=== PATIENT | female | born 2005 | race Caucasian/White ===

== ENCOUNTER 2024-12-07 15:47 | Outpatient (REF) | payer BC, SELFPAY ==
[2024-12-07 18:09] LABS: Thyroid Stimulating Hormone < 0.01 uIU/mL (0.32-4.0)
--- OUTSIDE RECORDS SUMMARY | 2024-12-07 18:47 | XMS_ITS | Data Portability ---
Author Organization [facility] [employer] Address [address] [address] Care Team Providers Care Brand Designer Name Role Phone JAMIE ROSARIO Referring Provider JAMIE Suggs Primary Care Provider [phone] Assessment Encounter Date Assessment Date Assessment LastModified by Organization Details LastModified Time 01/25/2021 01/25/2021 IMPRESSION: Postconcussive onset January 2020 of positioning independent episodes of dizziness with passing out; postconcussive increase in frequency of long history of tics. The details of an episode of dizziness and passing out are not typical for seizure. The positioning independent nature raises concern for seizure, however. Diagnostic investigation is therefore warranted. We discussed this. They agree to the diagnostic investigations. She does not have claustrophobia. I see tics only at the very end of our encounter, to quick head shakes. Tourette? s syndrome is not excluded although it is unusual from my understanding that takes emerge and persist throughout childhood with the mother not noticing. I defer to psychiatry for further understanding of this symptom. PLAN Angelica Newton January 25, 2021 [facility] facility: Brain MRI with and without contrast epilepsy protocol for positioning independent episodes of dizziness and passing out [facility] outpatient facility: EEG wake and sleep for positioning independent episodes of dizziness and passing out Follow-up afterwards rossana Not available 01/25/2021 10:22:08 11/27/2023 11/27/2023 IMPRESSION: Postconcussive onset January 2020 of positioning independent episodes of dizziness with passing out; postconcussive increase in frequency of long history of tics. DATA REVIEW IMAGING Brain MRI with and without contrast February 10, 2021 per dictation [facility] Dr. Andrea Jang: Unremarkable MRI examination of brain. NEUROPHYSIOLOGY EEG January 31, 2021, per my review: This is a borderline waking and sleep EEG because of a single small sharp amplitude right parietal? f rontal sharp wave and several episodes of right posterior slowing, all findings occurring during head rocking. These findings may be artifact relating to head rocking. Right posterior brain dysfunction cannot be excluded. Clinical and neuro imaging correlation may provide elucidation. EEG abnormality could be artifactual and in any case is nonspecific, not strongly suggesting a seizure disorder. Details of the position independent episodes that are associated with passing out remains in atypical for seizure although the position independence is a consistent characteristic with seizure. I newly appreciate that she has position dependent dizziness episodes, without passing out, but not orthostatic and not related to a heart condition, given patient's report of normal tilt table testing and normal 48-hour Holter monitor which recorded such episodes. A vestibular migraine could be a unifying diagnosis. We discussed this. I suggest a migraine medication that does not treat seizures and they are also in agreement with this. We compare amitriptyline and propranolol side effects and she chooses amitriptyline as a first trial intervention. >>>>>January 25, 2021 I see tics only at the very end of our encounter, to quick head shakes. Tourette? s syndrome is not excluded although it is unusual from my understanding that takes emerge and persist throughout childhood with the mother not noticing. I defer to psychiatry for further understanding of this symptom. PLAN Angelica Newton November 27, 2023 To help with the dizziness associated with migraine: Amitriptyline 10 mg tablets, taking dose 2 hours before bedtime: 0.5 tablet nightly, one week 1.0 tablet nightly one week 2 tablets nightly one week 3 tablets nightly afterwards as tolerated Amitriptyline may cause drowsiness, bladder hesitation, and dry mouth, and increased appetite. If side effects are not mild, return to the previous dose where he did not have side effects. If mild side effects do not go away after a few days, wait at the current dose for resolution if side effects are very mild and not bothering you, or return to the previous dose at which you did not have side effects. (If you have dry mouth: Try sugarless candy for dry mouth. Alternatively, Biotene, once every morning, [id number]-lpf-[id number] liquid may also help dry mouth) If symptoms resolve at a particular dose, there is no need to increase the dose further. If tiredness is the main side effect and you cannot get rid of it, consider stopping the gabapentin that you started a month ago which you report is just for help sleeping? n ot for help with your mood. If symptoms do not resolve but there are no side effects, do not stop the medication. We may discuss increasing the medication and follow-up. 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 --- EEG January 31, 2021, per my review:single small sharp wave and several episodes of right posterior slowing, all of which may be artifact relating to head rocking. ---Brain MRI February 10, 2021 : Unremarkable >>>>>>>>>>>>January 27, 2024 She would like to stay at this dose longer to understand how well it is working. She will make sure you call me? a nd psychiatry? s rio she have any manic symptomatology and we will not increase this dose in the future because of that possibility. Should she wish optimization, returning to the propranolol 10 mg tablet -- which she takes as needed for public speaking? m aking it a daily medication and slowly increasing it as needed would be my next intervention. She agrees with this and Contingency plan. >>>>>>>>>>>>November 27, 2023 EEG abnormality could be artifactual and in any case is nonspecific, not strongly suggesting a seizure disorder. Details of the position independent episodes that are associated with passing out remains in atypical for seizure although the position independence is a consistent characteristic with seizure. I newly appreciate that she has position dependent dizziness episodes, without passing out, but not orthostatic and not related to a heart condition, given patient's report of normal tilt table testing and normal 48-hour Holter monitor which recorded such episodes. A vestibular migraine could be a unifying diagnosis. We discussed this. I suggest a migraine medication that does not treat seizures and they are also in agreement with this. We compare amitriptyline and propranolol side effects and she chooses amitriptyline as a first trial intervention. >>>>>January 25, 2021 I see tics only at the very end of our encounter, to quick head shakes. Tourette? s syndrome is not excluded although it is unusual from my understanding that takes emerge and persist throughout childhood with the mother not noticing. I defer to psychiatry for further understanding of this symptom. PLAN Angelica Aman January 27, 2024 To help with the dizziness associated with migraine: CONTINUE Amitriptyline 10 mg tablets, taking dose 2 hours before bedtime: 3 tablets nightly Do not take this medication if you are thinking of becoming . Follow-up 4 months rossana Not available 01/27/2024 12:59:16 Plan of Treatment Reminders Order Date Submit Date Provider Last Modified By Organization Details Last Modified Time Details Appointments None recorded. Lab None recorded. Referral None recorded. Procedures None recorded. Surgeries None recorded. Imaging MRI, head, w/wo contrast - Brain MRI with and without contrast Epilepsy Protocol, Context: positioning independent episodes of dizziness and passing out 2020 021 danay 1 [facility] [address] [place], [address], 15:13:42 electroence phalogram - EEG wake and sleep for positioning independent episodes of dizziness and passing out 2020 021 [facility] ([facility]), [address] [place], [address], 1 13:53:28 Medication Orders amitriptyli ne 10 mg tablet 2023 024 [facility] #[id number], [address], [place], [address], 4 12:38:32 amitriptyli ne 10 mg tablet 2023 024 mrossen [id number], [address], [place], [address], 18:25:06 Patient TargetsNo targets recorded. Patient Instructions Encounter Date Encounter Id Patient Instructions Last Modified By Organization Details Last Modified Time 11/27/2023 [id number] Discussion acros s issues of diagnoses and management and same day associated chart review and management greater than 50% greater than 40 minutes [email or web address] Not available 11/27/2023 10:02:03 01/27/2024 [id number] Chronic conditio n with exacerbation; prescription medication management mrossen Not available 01/27/2024 12:58:57 Reason for Referral None Reported. Results Created Date Observation Date Name Description Value Unit Range Abnormal Flag Note LastModifiedBy Organization Detail LastModifiedTime 02/01/20 21 01/31/2021 elect roenc ephal ogram No observ ation record ed. [email or web address] ([facility]) [address] [place], [address], 02/14/2021 09:45:15 02/03/20 21 elect roenc ephal ogram No observ ation record ed. [facility] ([facility]) [address] [place], [address], 02/05/2021 11:15:10 02/03/20 21 02/02/2021 elect roenc ephal ogram No observ ation record ed. [email or web address] Not Available 02/14 09:45:16 02/15/20 21 02/10/2021 MRI, brain , w/wo contr ast No observ ation record ed. [email or web address] [facility] ([facility]) [address] [place], [address], 02/14/2021 13:22:49 Result Notes None recorded. Procedures Surgical History Date Name Laterality Status Provider Name and Address Organization Details Recorded Time 01/27/2024 DATA REVIEW completed Jason Leigh MD [address] [place] [address] [place], [address], [facility] 01/27/2024 12:53:06 11/27/2023 DATA REVIEW completed Jason Leigh MD [address] [place] [address] [place], [address], [facility] 11/27/2023 09:57:17 Imaging Results Imaging Date Name Status LastModified by Organization Details LastModified Time 01/31/2021 electroencephalogram completed [address] ([facility]) [address] [place], [address], 02/14/2021 09:45:15 02/02/2021 electroencephalogram completed [facility] ([facility]) [address] [place], [address], 02/05/2021 11:15:10 02/02/2021 electroencephalogram [place] [id number] Info rmation not available 02/14/2021 09:45:16 02/10/2021 MRI, brain, w/wo contrast completed [address] [facility] ([facility]) [address] [place], [address], 02/14/2021 13:22:49 Procedure Notes None recorded. Medical Equipment None Reported. Allergies No known drug allergies Medications Name Sig Start Date Stop Date Status Note LastModified by Organization Details LastModified Time fluoxetine 40 mg capsule TAKE 1 CAPSULE BY MOUTH AT BEDTIME active Not Available Not Available No t Available fluoxetine 20 mg/5 mL (4 mg/mL) oral solution TAKE 2 TEASPOONSFU L (10 ML) BY MOUTH EVERY DAY active Not Available Not Available No t Available lithium carbonate 150 mg capsule TAKE 1 CAPSULE BY MOUTH EVERY DAY active Not Available Not Available No t Available lithium carbonate ER 450 mg tablet,exten ded release TAKE 1 TABLET EVERY DAY AT BEDTIME (WITH LITHIUM CARBONATE 300 MG CAP) active Not Available Not Available Not Available oxycodone-ac etaminophen 5 mg-325 mg tablet TAKE 1 TAB EVERY 4-6 HOURS NEEDED FOR PAIN. MAY CAUSE DROWSINESS active Not Available Not Available N ot Available propranolol 10 mg tablet TAKE 1 TABLET BY MOUTH EVERY DAY NEEDED DIRECTED active Not Available Not Available No t Available amoxicillin 875 mg tablet TAKE 1 TAB TWICE A DAY UNTIL FINISHED. USE WITH PROBIOTICS active Not Available Not Available N ot Available amitriptylin e 10 mg tablet TAKE 3 TABLETS EVERY DAY BY ORAL ROUTE IN THE EVENING FOR 90 DAYS, FOR MIGRAINE AURA. active Not Available Not Available No t Available lithium carbonate 300 mg capsule TAKE 1 CAPSULE BY MOUTH AT BEDTIME active Not Available Not Available No t Available benzonatate 100 mg capsule TAKE 2 CAPSULES BY MOUTH 3 TIMES A DAY NEEDED FOR COUGH. active Not Available Not Available N ot Available levothyroxin e 50 mcg tablet TAKE 1 TABLET BY MOUTH EVERY MORNING active Not Available Not Available No t Available cephalexin 500 mg capsule TAKE 1 CAPSULE BY MOUTH 3 TIMES A DAY FOR 7 DAYS active Not Available Not Available N ot Available gabapentin 100 mg capsule TAKE 1 TO 2 CAPSULES BY MOUTH EVERY DAY AT BEDTIME DIRECTED NEEDED active Not Available Not Available No t Available methylpredni solone 4 mg tablets in a dose pack TAKE 6 TABLETS ON DAY 1 DIRECTED ON PACKAGE AND DECREASE BY 1 TAB EACH DAY FOR A TOTAL OF 6 DAYS active Not Available Not Available No t Available albuterol sulfate HFA 90 mcg/actuatio n aerosol inhaler INHALE 2 PUFFS INTO THE LUNGS EVERY 4 (FOUR) HOURS NEEDED FOR WHEEZING. USE WITH SPACER active Not Available Not Available No t Available Prozac 10 mg capsule Take 1 capsule every day by oral route. active Not Available Not Available No t Available PreviDent 5000 Plus 1.1 % cream PLEASE SEE ATTACHED FOR DETAILED DIRECTIONS active Not Available Not Available N ot Available fluticasone propionate 50 mcg/actuatio n nasal spray,suspen oscar SPRAY 2 SPRAYS INTO EACH NOSTRIL EVERY DAY FOR 30 DAYS active Not Available Not Available Not Available lamotrigine 100 mg tablet TAKE 1 TABLET BY MOUTH DAILY FOR 2 WEEKS THEN INCREASE TO 2 DAILY active Not Available Not Available No t Available amoxicillin 875 mg-potassium clavulanate 125 mg tablet TAKE 1 TABLET BY MOUTH TWICE A DAY FOR 7 DAYS active Not Available Not Available No t Available cyclobenzapr ine 5 mg tablet TAKE 1 TABLET P EVERY DAY AT BEDTIME NEEDED SPASM active Not Available Not Available No t Available Vitals Date Recorded Body height Body mass index (BMI) Body mass index (BMI) Percentile per age and sex Body weight Respiratory rate Provider Name and Address Organization Details Last Updated DateTime 1 170.18 cm 26.5 kg/m2 88 % 47418.1 1 g 12 /min Lety Hood [facility] 09:16:50 Social History Question Answer Notes LastModified by Organizat ion Details LastModified Time Tobacco Smoking Status Never Smoker Lety Chandra [facility] 01/25/2021 09:18:28 What Is Your Level Of Alcohol Consumption? None [facility] Information not available 01/25/2021 What Is Your Level Of Caffeine Consumption? Moderate 3 Cups Per Day [facility] Information not available 01/25/2021 What Is The Highest Grade Or Level Of School You Have Completed Or The Highest Degree You Have Received? [id number] [facility] Information not available 01/25/2021 What Is Your Relationship Status? Single [facility] Information not available 01/25/2021 Sex: Unknown Functional Status None recorded. Mental Status None recorded. Family History Relationship Description Onset Age of this Age Resolved Age Notes LastModified by Organization Details LastModified Time Mother Type 2 diabetes mellitus [email or web address] Not available 09:17:52 Medical History Condition Response Headaches Y Bipolar Disorder Y Gynecological HistoryNo gynecological history recorded. Obstetrics History GPAL:G 0 P 0 0 0 0 Past Encounters Encounter ID Performer Location Encounter Start Date Encounter Closed Date Diagnosis/Indication Diagnosis SNOMED-CT Code Diagnosis ICD10 Code Diagnosis Note [id number] Jason Leigh MD [facility] [address] [place] [address] [place] [address] 01/25/2021 09:04:30 01/25/2021 15:13:42 Focal onset impaired awareness epileptic seizure 575639809 G40.209 [id number] Jason Leigh MD [facility] [address] [place] [address] [place] [address] 11/27/2023 09:03:15 11/27/2023 10:07:03 Focal onset impaired awareness epileptic seizure 190870099 G40.209 Migraine with aura 58685 06 G43.109 [id number] Jason Leigh MD [facility] [address] [place] [address] [place] [address] 01/27/2024 11:53:59 01/27/2024 16:57:04 Migraine with aura 3166439 G43.109 Focal onse t impaired awareness epileptic seizure 959072766 G40.209 Health Concerns Section Related Observation LastModified by Organization Detai ls LastModified Time None Recorded Concern Status LastModified by Organization Details LastModified Time None Recorded Advance Directives Directive None Recorded Payers Encounter Date Sequence Insurance Name Policy Number Policy Orellana Covered Member ID Orellana Member ID Guarantor Name 01/25/2021 1 [facility] [id number] Angelica Newton [id number] Angelica Newton 11/27/2023 1 [place] [id number] Davion Newton [id number] Angelica Newton 01/27/2024 1 [place] [id number] Davion Newton [id number] Angelica Newton Notes Date Note Type Note Provider Name and Address Organization Details Recorded Time 01/25/2021 text/html They (identify w ith they/them pronouns and) present for initial neurology neurology consultation for assessment and management of episodic dizziness and passing out as well as taking. They are accompanied by a friend? a nd mother Macrina dickens will help with history and provide support. Historically she has never passed out. She has ? u sually? been dizzy for as long as she can remember, a dizziness that feels like just after one has spun around such as a inxml-dd-ayyby. This is present ~70% of the time, positioning independent. In January 2020 she had a concussion falling off a swing, uncertain loss of consciousness. There were postconcussive symptoms including headache. Many of the postconcussive symptoms resolved but there has been postconcussive persistence of episodes of dizziness followed by passing out. The dizziness feels different than her baseline dizziness, more like a feeling if she gets up too fast, with the body very heavy. Passing out occurs after a second or 2 up to a minute or 2 of this dizziness. An event occurs with equal likelihood if she is standing or sitting. An event occurs more rarely if she is lying down. The period of unconsciousness may be a split second but averages 1 or 2 minutes. There have been rare longer events including 45-60 minutes after which she went to the emergency room. Per chart, investigation at emergency room October 24, 2020 was unrevealing. When she regains unawareness there is an additional minute when she is unable to move. She struggles to try to move which looks like ? t ics or twitches but purposeful? to their friend and feels purposeful to the patient. Her eyes are closed during the period of unconsciousness but open during this post-unconsciousness time. There is no bladder or bowel dyscontrol. She has hurt herself falling down but there has been no fracture. Events were not that frequent for the first ~3 months but became more frequent May or June 2021. Since then they have been 1-4 per day with a rare day without any events. The exception has been this past week when there have been ~4 events throughout the whole week. She notes that this is her first week after the end of her semester at [employer]. They have had tics ? h er whole life.? Their mother ? n ever noticed them, I just guess I wasn? t tuned in.? Historically they have been only occasional, perhaps less than once a day. Their okay full pill neurological exam being normal is a friend notices them as a shiver down the spine or a short whistle or word. The patient agrees. They have increased in frequency since January 2020 concussion. They occur daily at varying frequencies. Sometimes there are clusters of very frequent events for 15 minutes to 60 minutes. Other times there are isolated events throughout the day. She started Prozac with diagnoses of anxiety and depression about 2 years ago. She subsequently received diagnosis of bipolar disorder. 2 mood stabilizers were tried in succession in early/mid 2019 but she had side effects. They then went into an intensive care program toward the end of January 2020 where they tried another mood stabilizer which ? d idn? t work out.? They tried yet another mood stabilizer in early March and this again did not work out. They do not remember names of medications but mother remembers Lamictal and Latuda. They have since remained on Prozac 10 mg with no subsequent medication changes. Jason Leigh MD [address] [place] [address] [place], [address], [facility] 02/02/2021 08:59:17 11/27/2023 text/html They (identify w ith they/them pronouns and) present for neurology reconsultation for assessment and management of episodic dizziness and passing out. --They are unaccompanied. --not present:a friend? a nd mother Macrina.>>>>>>>>>>>>Lupis [facility] 2023Since January 25, 2021 first and only neurology encounter, 2 years 10 months ago, her episodic position independent dizziness episodes have continued although they are less frequent, and less frequently associated with losing consciousness. They occur about once a day. Dizziness continues range between 1-2 seconds and 1-2 minutes. She loses consciousness about 10% of the time. Even if she loses consciousness within 2 seconds, she has not hurt herself because she has learned to get herself into a safe position when she feels the sensation.She mentions another type of dizziness that she has that we had not discussed because she always thought it was normal: The same type of dizziness as the above events, but position dependent. These happen one or more times a day with standing from a sitting position. Portion of the events are associated with her vision going partially dark and light seeming red. She has had 48-hour Holter monitor during which events occurred and that was normal. She has had tilt table testing which was normal.She also gets headaches. Sometimes she has visual splotches of dark spots during her headaches. >>>>>>>>>>>>January 25, 2021 presenting symptomatology:Histor ically she has never passed out. She has ? u sually? been dizzy for as long as she can remember, a dizziness that feels like just after one has spun around such as a qpart-gy-leihk. This is present ~70% of the time, positioning independent. In January 2020 she had a concussion falling off a swing, uncertain loss of consciousness. There were postconcussive symptoms including headache. Many of the postconcussive symptoms resolved but there has been postconcussive persistence of episodes of dizziness followed by passing out. The dizziness feels different than her baseline dizziness, more like a feeling if she gets up too fast, with the body very heavy. Passing out occurs after a second or 2 up to a minute or 2 of this dizziness. An event occurs with equal likelihood if she is standing or sitting. An event occurs more rarely if she is lying down. The period of unconsciousness may be a split second but averages 1 or 2 minutes. There have been rare longer events including 45-60 minutes after which she went to the emergency room. Per chart, investigation at emergency room October 24, 2020 was unrevealing. When she regains unawareness there is an additional minute when she is unable to move. She struggles to try to move which looks like ? t ics or twitches but purposeful? to their friend and feels purposeful to the patient. Her eyes are closed during the period of unconsciousness but open during this post-unconsciousness time. There is no bladder or bowel dyscontrol. She has hurt herself falling down but there has been no fracture. Events were not that frequent for the first ~3 months but became more frequent May or June 2021. Since then they have been 1-4 per day with a rare day without any events. The exception has been this past week when there have been ~4 events throughout the whole week. She notes that this is her first week after the end of her semester at [employer]. They have had tics ? h er whole life.? Their mother ? n ever noticed them, I just guess I wasn? t tuned in.? Historically they have been only occasional, perhaps less than once a day. Their okay full pill neurological exam being normal is a friend notices them as a shiver down the spine or a short whistle or word. The patient agrees. They have increased in frequency since January 2020 concussion. They occur daily at varying frequencies. Sometimes there are clusters of very frequent events for 15 minutes to 60 minutes. Other times there are isolated events throughout the day. She started Prozac with diagnoses of anxiety and depression about 2 years ago. She subsequently received diagnosis of bipolar disorder. 2 mood stabilizers were tried in succession in early/mid 2019 but she had side effects. They then went into an intensive care program toward the end of January 2020 where they tried another mood stabilizer which ? d idn? t work out.? They tried yet another mood stabilizer in early March and this again did not work out. They do not remember names of medications but mother remembers Lamictal and Latuda. They have since remained on Prozac 10 mg with no subsequent medication changes. Jason Leigh MD [address] [place] [address] [place], [phone], [facility] 11/27/2023 10:02:15 01/27/2024 text/html They (identify w ith they/them pronouns and) present for neurology reconsultation for assessment and management of episodic dizziness and passing out. --They are unaccompanied. --not present:a friend? a nd mother Macrina. >>>>>>>>>>>>January 27, 2024Since November 27, 2023 Neurology follow-up encounter, she has started amitriptyline 10 mg tablets and has increased by 10 mg every week until reaching 30 mg every evening. She has had reduction of episodic position independent dizziness episodes. She had one just yesterday and that reminded her that she had not had one previously for 2 to 4 weeks. This one was about 30 seconds long. She did not lose consciousness but almost. She has not lost consciousness in any of the episodes that have occurred since reaching her current dose, ~6 weeks ago. She has had no side effects. 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 She has used it a few times to good effect in reducing her anxiety while speaking. She has had no side effects. >>>>>>>>>>>>November 27, 2023Since January 25, 2021 first and only neurology encounter, 2 years 10 months ago, her episodic position independent dizziness episodes have continued although they are less frequent, and less frequently associated with losing consciousness. They occur about once a day. Dizziness continues range between 1-2 seconds and 1-2 minutes. She loses consciousness about 10% of the time. Even if she loses consciousness within 2 seconds, she has not hurt herself because she has learned to get herself into a safe position when she feels the sensation.She mentions another type of dizziness that she has that we had not discussed because she always thought it was normal: The same type of dizziness as the above events, but position dependent. These happen one or more times a day with standing from a sitting position. Portion of the events are associated with her vision going partially dark and light seeming red. She has had 48-hour Holter monitor during which events occurred and that was normal. She has had tilt table testing which was normal.She also gets headaches. Sometimes she has visual splotches of dark spots during her headaches. >>>>>>>>>>>>January 25, 2021 presenting symptomatology:[facility] she has never passed out. She has ? u sually? been dizzy for as long as she can remember, a dizziness that feels like just after one has spun around such as a [id number]. This is present ~70% of the time, positioning independent. In January 2020 she had a concussion falling off a swing, uncertain loss of consciousness. There were postconcussive symptoms including headache. Many of the postconcussive symptoms resolved but there has been postconcussive persistence of episodes of dizziness followed by passing out. The dizziness feels different than her baseline dizziness, more like a feeling if she gets up too fast, with the body very heavy. Passing out occurs after a second or 2 up to a minute or 2 of this dizziness. An event occurs with equal likelihood if she is standing or sitting. An event occurs more rarely if she is lying down. The period of unconsciousness may be a split second but averages 1 or 2 minutes. There have been rare longer events including 45-60 minutes after which she went to the emergency room. Per chart, investigation at emergency room October 24, 2020 was unrevealing. When she regains unawareness there is an additional minute when she is unable to move. She struggles to try to move which looks like ? t ics or twitches but purposeful? to their friend and feels purposeful to the patient. Her eyes are closed during the period of unconsciousness but open during this post-unconsciousness time. There is no bladder or bowel dyscontrol. She has hurt herself falling down but there has been no fracture. Events were not that frequent for the first ~3 months but became more frequent May or June 2021. Since then they have been 1-4 per day with a rare day without any events. The exception has been this past week when there have been ~4 events throughout the whole week. She notes that this is her first week after the end of her semester at [employer]. They have had tics ? h er whole life.? Their mother ? n ever noticed them, I just guess I wasn? t tuned in.? Historically they have been only occasional, perhaps less than once a day. Their okay full pill neurological exam being normal is a friend notices them as a shiver down the spine or a short whistle or word. The patient agrees. They have increased in frequency since January 2020 concussion. They occur daily at varying frequencies. Sometimes there are clusters of very frequent events for 15 minutes to 60 minutes. Other times there are isolated events throughout the day. She started Prozac with diagnoses of anxiety and depression about 2 years ago. She subsequently received diagnosis of bipolar disorder. 2 mood stabilizers were tried in succession in early/mid 2019 but she had side effects. They then went into an intensive care program toward the end of January 2020 where they tried another mood stabilizer which ? d idn? t work out.? They tried yet another mood stabilizer in early March and this again did not work out. They do not remember names of medications but mother remembers Lamictal and Latuda. They have since remained on Prozac 10 mg with no subsequent medication changes. Jason Leigh MD [address] [place] [address] [place], [phone], [facility] 01/27/2024 12:59:30 OBGyn Episode No OBEpisode recorded.
== END 2024-12-07 15:48 | disposition home or self-care (01) ==
LOC: HO.LAB 15:47
PROVIDERS: PCP Family Medicine; Visit Provider Psychiatry & Neurology Psychiatry
DX: F31.89 Other bipolar disorder (principal)
CPT/HCPCS: 36415; 84443

== ENCOUNTER 2025-03-15 15:13 | Outpatient (REF) | payer BC, SELFPAY ==
--- OUTSIDE RECORDS SUMMARY | 2025-03-15 16:25 | XMS_ITS | Data Portability ---
Author Organization [facility], [employer] Address [address] [place] [address] Care Team Providers Care Estimate Clerk Name Role Phone JAMIE ROSARIO Referring Provider Shawnaa JAMIE Jim Primary Care Provider Assessment Encounter Date Assessment Date Assessment LastModified [...] of our encounter, to quick head shakes. Tourette s syndrome is not excluded although it is unusual from my understanding that takes emerge and persist throughout childhood with the mother not noticing. I defer to psychiatry for further understanding of this symptom. PLAN Angelica Newton January 25, 2021 [facility] facility: Brain MRI with and without contrast epilepsy protocol for positioning independent episodes of dizziness and passing out [facility] outpatient facility: EEG wake and sleep for positioning independent episodes of dizziness and passing out Follow-up afterwards rossana Not available 01/25/2021 10:22:08 11/27/2023 11/27/2023 IMPRESSION: Postconcussive onset January 2020 of positioning independent episodes of dizziness with passing out; postconcussive increase in frequency of long history of tics. DATA REVIEW IMAGING Brain MRI with and without contrast February 10, 2021 per dictation [facility] neur[facility] Dr. Andrea Jang: Unremarkable MRI examination of brain. NEUROPHYSIOLOGY EEG January 31, 2021, per my review: This is a borderline waking and sleep EEG because of a single small sharp amplitude right parietal frontal sharp wave and several episodes of right [...] of our encounter, to quick head shakes. Tourette s syndrome is not excluded although it [...] dry mouth. Alternatively, Biotene, once every morning, haok-yvi-rvxsurm liquid may also help dry mouth) If symptoms resolve at a particular dose, there is no need to increase the dose further. If tiredness is the main side effect and you cannot get rid of it, consider stopping the gabapentin that you started a month ago which you report is just for help sleeping not for help with your mood. If symptoms [...] working. She will make sure you call me and psychiatry should she have any manic symptomatology and we will not increase this dose in the future because of that possibility. Should she wish optimization, returning to the propranolol 10 mg tablet -- which she takes as needed for public speaking making it a daily medication and slowly increasing [...] of our encounter, to quick head shakes. Tourette s syndrome is not excluded although it is unusual from my understanding that takes emerge and persist throughout childhood with the mother not noticing. I defer to psychiatry for further understanding of this symptom. PLAN Angelica Newton January 27, 2024 To help with the [...] Organization Details Last Modified Time Details Appointments FOLLOW UP EXT 2024 12:30P José Leigh MD PhD Not available Not available Not available Lab None recorded. Referral None recorded. Procedures None recorded. Surgeries None recorded. Imaging MRI, head, w/wo contrast - Brain MRI with and without contrast Epilepsy Protocol, Context: positioni ng independe nt episodes of dizziness and passing out 2020 021 [email or web address] [facility] ([facility]), [address] [place], [address], 01/25/2021 15:13:42 electroen cephalogr am - EEG wake and sleep for positioni ng independe nt episodes of dizziness and passing out 2020 021 [facility] (P[facility] Neuro Lab), [address] [place], [address], 01/31/2021 13:53:28 Medication Orders amitripty line 10 mg tablet 2023 024 [facility]acy #[id number], [address] [place], [address], 01/27/2024 12:38:32 amitripty line 10 mg tablet 2023 024 [facility]/Pharmacy #[id number], [address] [place], [address], 12/25/2023 18:25:06 Patient TargetsNo targets recorded. Patient Instructions Encounter Date Encounter Id Patient Instructions Last Modified By Organization Details Last Modified Time 11/27/2023 [id number] Discussion acros s issues of diagnoses and management and same day associated chart review and management greater than 50% greater than 40 minutes [email or web address] Not available 11/27/2023 10:02:03 01/27/2024 [id number] Chronic conditio n with exacerbation; prescription medication management [email or web address] Not available 01/27/2024 12:58:57 Reason for Referral None Reported. Results Created Date Observation Date Name Description Value Unit Range Abnormal Flag Note LastModifiedBy Organization Detail LastModifiedTime 02/01/20 21 01/31/2021 elect roenc ephal ogram No observ ation record ed. [email or web address] [facility] (Central Scheduling Radiology) [address] [place], [address], 02/14/2021 09:45:15 02/03/20 21 elect roenc ephal ogram No observ ation record ed. [facility] (Pulmonary And Neuro Lab) [address] [place], [address], 02/05/2021 11:15:10 02/03/20 21 02/02/2021 elect roenc ephal ogram No observ ation record ed. [email or web address] Not Available 02/14 09:45:16 02/15/20 21 02/10/2021 MRI, brain , w/wo contr ast No observ ation record ed. [email or web address] [facility] ([facility]) [address] [place], [address], 02/14/2021 13:22:49 Result Notes None recorded. Procedures Surgical History Date Name Laterality Status Provider Name and Address Organization Details Recorded Time 01/27/2024 DATA REVIEW completed Jason Leigh MD [address] [place] [address] [place], [phone], [facility] 01/27/2024 12:53:06 11/27/2023 DATA REVIEW completed Jason Leigh MD [address] [place] [address] [place], [phone], [facility] 11/27/2023 09:57:17 Imaging Results None recorded. Procedure Notes None recorded. Medical Equipment None [...] ot Available amitriptylin e 10 mg tablet Take 3 tablet(s) every day by oral route in the evening for 90 days, for migraine aura. 2024 active Not Available Not Available Not Avai lable lithium carbonate 300 mg capsule TAKE 1 [...] mass index (BMI) Body mass index (BMI) [Percentile] Per age and sex Body weight Respiratory rate Provider Name and Address Organization Details Last Updated DateTime 170.18 cm 26.5 kg/m2 88 % 47623.1 1 g 12 /min Lety Mendoza [facility] 09:16:50 Social History Question Answer Notes LastModified by Organizat ion Details LastModified Time Tobacco Smoking Status Never Smoker Lety Chandra [facility] 01/25/2021 09:18:28 What Is Your Level Of Caffeine Consumption? Moderate 3 Cups Per Day Information not available 01/25/2021 What Is The Highest Grade Or Level Of School You Have Completed Or The Highest Degree You Have Received? [id number] Information not available 01/25/2021 What Is Your Relationship Status? Single Information not available 01/25/2021 Sex: Unknown Functional Status Question Answer Note LastModified by Organization D etails LastModified Time What is your level of alcohol consumption? None Information not available 01/25/2021 Mental Status None recorded. Family History Relationship [...] Code Diagnosis Note [id number] Jason Leigh MD [address] [place] [address] 01/25/2021 09:04:30 01/25/2021 15:13:42 Focal onset impaired awareness epileptic seizure 060679191 G40.209 [id number] Jason Leigh MD [address] [place] [address] 11/27/2023 09:03:15 11/27/2023 10:07:03 Focal onset impaired awareness epileptic seizure 702576417 G40.209 Migraine with aura 49330 06 G43.109 [id number] Jason Leigh MD [address] [place] [address] 01/27/2024 11:53:59 01/27/2024 16:57:04 Migraine with aura 2192218 G43.109 Focal onse t impaired awareness epileptic seizure [id number] G40.209 Health Concerns Section Related Observation LastModified by Organization Detai ls LastModified Time None Recorded Concern Status LastModified by Organization Details LastModified Time None Recorded Advance Directives Directive None Recorded Payers Insurance Date Sequence Insurance Name Policy Number Policy Orellana Covered Member ID Orellana Member ID Guarantor Name 03/15/2025 1 WILLIE [id number] Angelica Newton [id number] Angelica Newton 03/15/2025 1 LISANDRA-ASHOK (PPO) [id number] Davion Newton [id number] Angelica Newton Notes Date Note Type Note Provider Name and Address Organization Details Recorded Time 01/25/2021 text/html They (identify w ith they/them pronouns and) present for initial neurology neurology consultation for assessment and management of episodic dizziness and passing out as well as taking. They are accompanied by a friend and mother Macrina dickens will help with history and provide support. Historically she has never passed out. She has usually been dizzy for as long as she can remember, a dizziness that feels like just after one has spun around such as a [id number]-[id number]. This is present ~70% of the time, [...] to try to move which looks like tics or twitches but purposeful to their friend and feels purposeful to [...] after the end of her semester at [employer]. They have had tics her whole life. Their mother never noticed them, I just guess I wasn t tuned in. Historically they have been only occasional, perhaps [...] where they tried another mood stabilizer which didn t work out. They tried yet another mood stabilizer in early March and this again did not work out. They do not remember names of medications but mother remembers Lamictal and Latuda. They have since remained on Prozac 10 mg with no subsequent medication changes. Jason Leigh MD [address] [place] [address] [place], [phone], [facility] 02/02/2021 08:59:17 11/27/2023 text/html They (identify w ith they/them pronouns and) present for neurology reconsultation for assessment and management of episodic dizziness and passing out. --They are unaccompanied. --not present:a friend and mother Macrina.>>>>>>>>>>>>[facility] 2023Since January 25, 2021 first [...] she has never passed out. She has usually been dizzy for as long as she can remember, a dizziness that feels like just after one has spun around such as a [id number]-[id number]. This is present ~70% of the time, [...] to try to move which looks like tics or twitches but purposeful to their friend and feels purposeful to [...] after the end of her semester at [employer]. They have had tics her whole life. Their mother never noticed them, I just guess I wasn t tuned in. Historically they have been only occasional, perhaps [...] where they tried another mood stabilizer which didn t work out. They tried yet another mood stabilizer in early March and this again did not work out. They do not remember names of medications but mother remembers Lamictal and Latuda. They have since remained on Prozac 10 mg with no subsequent medication changes. Jason Leigh MD [address] [place] [address] [place], [phone], [facility] 11/27/2023 10:02:15 01/27/2024 text/html They (identify w ith they/them pronouns and) present for neurology reconsultation for assessment and management of episodic dizziness and passing out. --They are unaccompanied. --not present:a friend and mother Macrina. >>>>>>>>>>>>January 27, 2024Since November 27, [...] she has been doing since graduating from [employer]. She has used it a few [...] she has never passed out. She has usually been dizzy for as long as she can remember, a dizziness that feels like just after one has spun around such as a [id number]-[id number]. This is present ~70% of the time, [...] to try to move which looks like tics or twitches but purposeful to their friend and feels purposeful to [...] after the end of her semester at [employer]. They have had tics her whole life. Their mother never noticed them, I just guess I wasn t tuned in. Historically they have been only occasional, perhaps [...] where they tried another mood stabilizer which didn t work out. They tried yet another mood stabilizer in early March and this again did not work out. They do not remember names of medications but mother remembers Lamictal and Latuda. They have since remained on Prozac 10 mg with no subsequent medication changes. Jason Leigh MD [address] [place] [address] [place], [phone], [facility] 01/27/2024 12:59:30 OBGyn Episode No OBEpisode recorded.
[2025-03-15 17:31] LABS: Lithium 0.39 mmol/L (0.60-1.20)
[2025-03-15 17:43] LABS: Blood Urea Nitrogen 10 mg/dL (9-16); Estimated Glomerular Filt Rate > 60
[2025-03-15 18:02] LABS: Thyroid Stimulating Hormone 4.97 uIU/mL (0.32-4.0)
== END 2025-03-15 15:14 | disposition home or self-care (01) ==
LOC: HO.LAB 15:13
PROVIDERS: PCP Family Medicine; Visit Provider Psychiatry & Neurology Psychiatry
DX: F31.81 Bipolar II disorder (principal)
CPT/HCPCS: 36415; 80178; 82565; 84443; 84520

== ENCOUNTER 2025-06-27 10:47 | Outpatient (REF) | payer BC, SELFPAY ==
[2025-06-27 11:46] LABS: Lithium 0.41 mmol/L (0.60-1.20)
[2025-06-27 12:13] LABS: Thyroid Stimulating Hormone 2.59 uIU/mL (0.32-4.0)
== END 2025-06-27 10:48 | disposition home or self-care (01) ==
LOC: HO.LAB 10:47
PROVIDERS: PCP Family Medicine; Visit Provider Psychiatry & Neurology Psychiatry
DX: F31.81 Bipolar II disorder (principal)
CPT/HCPCS: 36415; 80178; 84443